=== PATIENT | male | born 1965 | race African-American/Black ===

== ENCOUNTER 2023-08-19 08:32 | Emergency (ER) | payer OTHER ==
[~2023-08-19] VITALS: Ht 175.3 cm; Wt 80.0 kg
[2023-08-19 08:37] VITALS: O2SAT 98
[2023-08-19] MEDS ORDERED: LACTATED RINGERS 1,000 ML IV SCH (09:15)
[2023-08-19] MEDS ORDERED: LEVETIRACETAM 500MG PREMIX 100 ML IV ONE ×2 (09:15)
[2023-08-19 09:57] LABS: BASOPHILS % 0.3 % (0.0-2.0); EOSINOPHILS % 0.8 % (0.0-5.0); HEMATOCRIT. 28.3 % (42.0-52.0); HEMOGLOBIN. 9.7 g/dL (14.0-18.0); LYMPHOCYTES % 14.6 % (20.0-50.0); MEAN CORPUSCULAR HEMOGLOBIN 31.2 pg (28.0-32.0); MEAN CORPUSCULAR HGB CONC 34.3 g/dL (31.0-37.0); MEAN PLATELET VOLUME 6.8 fl (7.4-10.4); MONOCYTES % 7.8 % (2.0-8.0); NEUTROPHILS % 76.5 % (40.0-76.0); PLATELET 351 x1000/uL (130-400); RED BLOOD CELL COUNT 3.11 mill/uL (4.7-6.1); RED CELL DISTRIBUTION WIDTH 13.5 % (11.6-14.6)
[2023-08-19 10:01] LABS: ALANINE AMINOTRANSFERASE 13 IU/L (10-49); ALBUMIN 3.7 g/dL (3.2-4.8); ASPARTATE AMINOTRANSFERASE 15 IU/L (<34); BILIRUBIN TOTAL 0.4 mg/dL (0.1-1.0); CALCIUM 8.3 mg/dL (8.7-10.4); CARBON DIOXIDE 26 mEq/L (21-32); CHLORIDE 104 mEq/L (98-107); CREATINE KINASE 93 IU/L (46-171); CREATININE 1.1 mg/dL (0.6-1.3); GLUCOSE 288 mg/dL (70-105); PROTEIN TOTAL 6.5 g/dL (6.0-8.3); SODIUM 139 mEq/L (136-145); UREA NITROGEN BLOOD 19 mg/dL (9-23)
[2023-08-19 11:49] VITALS: BP 195/127; RESP 13; TEMP 98.3
[2023-08-19 12:58] VITALS: PULSE 98
== END 2023-08-19 13:50 | disposition home or self-care (01) ==
LOC: ER 08:32
DX: R56.9 Unspecified convulsions (principal); E11.9 Type 2 diabetes mellitus without complications; I10 Essential (primary) hypertension
CPT/HCPCS: 80053; 82550; 85025; 36415; 70450; 93005; 96365; 99285; J1953; Z7610 ×3

== ENCOUNTER 2024-04-04 15:47 | Emergency (ER) | payer OTHER ==
[~2024-04-04] VITALS: Ht 175.3 cm; Wt 70.0 kg
[2024-04-04 15:51] VITALS: O2SAT 97
[2024-04-04 16:48] LABS: BASOPHILS % 0.6 % (0.0-2.0); EOSINOPHILS % 0.6 % (0.0-5.0); HEMATOCRIT. 28.3 % (42.0-52.0); HEMOGLOBIN. 9.7 g/dL (14.0-18.0); LYMPHOCYTES % 18.1 % (20.0-50.0); MEAN CORPUSCULAR HEMOGLOBIN 30.9 pg (28.0-32.0); MEAN CORPUSCULAR HGB CONC 34.3 g/dL (31.0-37.0); MEAN CORPUSCULAR VOLUME 90.1 fL (80.0-94.0); MEAN PLATELET VOLUME 6.7 fl (7.4-10.4); MONOCYTES % 6.4 % (2.0-8.0); NEUTROPHILS % 74.3 % (40.0-76.0); PLATELET 301 x1000/uL (130-400); RED BLOOD CELL COUNT 3.14 mill/uL (4.7-6.1); RED CELL DISTRIBUTION WIDTH 13.5 % (11.6-14.6); WHITE BLOOD COUNT 6.1 x1000/uL (4.5-11.0)
[2024-04-04 16:52] LABS: CHLORIDE 107 mEq/L (98-107); POTASSIUM 3.8 mEq/L (3.5-5.1); SODIUM 138 mEq/L (136-145)
[2024-04-04 16:53] LABS: CARBON DIOXIDE 24 mEq/L (21-32)
[2024-04-04 16:58] LABS: CREATININE 1.2 mg/dL (0.6-1.3); GLUCOSE 162 mg/dL (70-105); UREA NITROGEN BLOOD 21 mg/dL (9-23)
[2024-04-04] MEDS: LEVETIRACETAM 1000MG PREMIX 100 ML IV ONE (17:04)
[2024-04-04 17:10] LABS: ETHANOL BLOOD < 10 mg/dL (<10)
[2024-04-04] MEDS ORDERED: HYDRALAZINE HCL 50MG TABLET PO ONE (18:30)
[2024-04-04] MEDS: HYDRALAZINE HCL 25MG TABLET PO NR (18:32)
[2024-04-04] MEDS: LISINOPRIL 10MG TABLET PO ONE (18:32)
[2024-04-04] MEDS: HYDRALAZINE 20MG/ML VIAL IV ONE (20:14)
[2024-04-04 21:30] VITALS: BP 150/93; PULSE 115; RESP 20; TEMP 98.3
== END 2024-04-04 21:20 | disposition home or self-care (01) ==
LOC: ER 15:47
DX: R56.9 Unspecified convulsions (principal); E11.9 Type 2 diabetes mellitus without complications; I10 Essential (primary) hypertension
CPT/HCPCS: 80048; 80320; 85025; 36415; 96365; 96366; 96375; 99285; J1953; J0360; Z7610 ×4; G0480

== ENCOUNTER 2024-04-12 12:48 | Emergency (ER) | payer OTHER ==
[~2024-04-12] VITALS: Ht 177.8 cm; Wt 66.0 kg
[2024-04-12 12:56] VITALS: O2SAT 99
[2024-04-12] MEDS: SODIUM CHLORIDE 0.9% 1,000 ML IV ONE (13:27)
[2024-04-12] MEDS: LEVETIRACETAM 500MG PREMIX 100 ML IV ONE (13:27)
[2024-04-12 13:41] LABS: BASOPHILS % 0.6 % (0.0-2.0); EOSINOPHILS % 1.1 % (0.0-5.0); HEMATOCRIT. 29.7 % (42.0-52.0); LYMPHOCYTES % 23.3 % (20.0-50.0); MEAN CORPUSCULAR HEMOGLOBIN 30.6 pg (28.0-32.0); MEAN CORPUSCULAR HGB CONC 33.7 g/dL (31.0-37.0); MEAN CORPUSCULAR VOLUME 90.8 fL (80.0-94.0); MEAN PLATELET VOLUME 6.6 fl (7.4-10.4); MONOCYTES % 7.3 % (2.0-8.0); NEUTROPHILS % 67.7 % (40.0-76.0); PLATELET 355 x1000/uL (130-400); RED BLOOD CELL COUNT 3.27 mill/uL (4.7-6.1); RED CELL DISTRIBUTION WIDTH 13.6 % (11.6-14.6); WHITE BLOOD COUNT 7.1 x1000/uL (4.5-11.0)
[2024-04-12 13:46] LABS: CHLORIDE 105 mEq/L (98-107); POTASSIUM 4.3 mEq/L (3.5-5.1); SODIUM 139 mEq/L (136-145)
[2024-04-12 13:47] LABS: CALCIUM 9.6 mg/dL (8.7-10.4); CARBON DIOXIDE 25 mEq/L (21-32)
[2024-04-12 13:52] LABS: CREATININE 1.3 mg/dL (0.6-1.3); GLUCOSE 130 mg/dL (70-105); UREA NITROGEN BLOOD 17 mg/dL (9-23)
[2024-04-12 16:46] VITALS: BP 148/78; PULSE 98; RESP 15; TEMP 98.4
== END 2024-04-12 16:47 | disposition home or self-care (01) ==
LOC: ER 12:48
DX: R56.9 Unspecified convulsions (principal); N28.9 Disorder of kidney and ureter, unspecified; E11.9 Type 2 diabetes mellitus without complications; I10 Essential (primary) hypertension; Z86.59 Personal history of other mental and behavioral disorders; W07.XXXA Fall from chair, initial encounter; Y93.89 Activity, other specified; Y92.89 Other specified places as the place of occurrence of the external cause; Y99.8 Other external cause status
CPT/HCPCS: 99285; 96365; 70450; 80048; 85025; 36415; 93005; J1953; J7030

== ENCOUNTER 2024-06-11 17:53 | Inpatient (IN) | payer OTHER ==
[~2024-06-11] VITALS: Ht 172.7 cm; Wt 77.1 kg
[2024-06-11] MEDS: SODIUM CHLORIDE 0.9% 1,000 ML IV ONE (18:41)
[2024-06-11] MEDS: LEVETIRACETAM 1000MG PREMIX 100 ML IV ONE (18:41)
[2024-06-11 18:59] LABS: BASOPHILS % 0.3 % (0.0-2.0); EOSINOPHILS % 0.3 % (0.0-5.0); HEMATOCRIT. 31.2 % (42.0-52.0); HEMOGLOBIN. 10.7 g/dL (14.0-18.0); LYMPHOCYTES % 17.1 % (20.0-50.0); MEAN CORPUSCULAR HEMOGLOBIN 31.1 pg (28.0-32.0); MEAN CORPUSCULAR HGB CONC 34.4 g/dL (31.0-37.0); MEAN CORPUSCULAR VOLUME 90.5 fL (80.0-94.0); MEAN PLATELET VOLUME 7.3 fl (7.4-10.4); MONOCYTES % 7.7 % (2.0-8.0); NEUTROPHILS % 74.6 % (40.0-76.0); PLATELET 295 x1000/uL (130-400); RED BLOOD CELL COUNT 3.45 mill/uL (4.7-6.1); RED CELL DISTRIBUTION WIDTH 13.4 % (11.6-14.6); WHITE BLOOD COUNT 7.2 x1000/uL (4.5-11.0)
[2024-06-11 19:04] LABS: CHLORIDE 106 mEq/L (98-107); POTASSIUM 4.6 mEq/L (3.5-5.1); SODIUM 137 mEq/L (136-145)
[2024-06-11 19:05] LABS: CALCIUM 9.7 mg/dL (8.7-10.4); CARBON DIOXIDE 21 mEq/L (21-32)
[2024-06-11 19:10] LABS: CREATININE 1.6 mg/dL (0.6-1.3); GLUCOSE 184 mg/dL (70-105); UREA NITROGEN BLOOD 23 mg/dL (9-23)
[2024-06-11 19:11] LABS: TROPONIN I HIGH SENSITIVITY 5 ng/L (3.0-53)
[2024-06-11 19:12] LABS: CREATINE KINASE 56 IU/L (46-171)
[2024-06-11 19:15] LABS: ETHANOL BLOOD < 10 mg/dL (<10)
[2024-06-11 19:16] LABS: CARBAMAZEPINE < 0.4 ug/mL (4-12); PHENOBARBITAL < 3.0 ug/mL (15.0-40.0); PHENYTOIN < 2.0 ug/mL (10-20); VALPROIC ACID < 3.0 ug/mL (50-100)
[2024-06-11] MEDS ORDERED: ONDANSETRON HCL 4MG/2ML INJ IV PRN (21:00)
[2024-06-11] MEDS ORDERED: LORAZEPAM 2MG/ML INJ IV PRN (21:00)
[2024-06-11] MEDS ORDERED: GUAIFENESIN 200MG/10ML SUGAR FREE UDC PO PRN (21:00)
[2024-06-11] MEDS ORDERED: DOCUSATE SODIUM 100MG CAPSULE PO PRN (21:00)
[2024-06-11] MEDS ORDERED: ACETAMINOPHEN 325MG TABLET PO PRN (21:00)
[2024-06-11] MEDS ORDERED: IPRATROPIUM/ALBUTEROL 0.5-3(2.5)MG/3ML NEB HHN PRN (21:00)
[2024-06-11] MEDS ORDERED: MAGNESIUM/ALUMINUM HYDROXIDE/SIMETHICONE 30ML UDC PO PRN (21:00)
[2024-06-11] MEDS: HYDRALAZINE 20MG/ML VIAL IV PRN (21:29)
[2024-06-11] MEDS ORDERED: DEXTROSE 50% WATER 50ML SYRINGE IV PRN (22:15)
[2024-06-11] MEDS: FAMOTIDINE 20MG TABLET PO SCH (22:22)
[2024-06-11] MEDS: SODIUM CHLORIDE 0.9% 1,000 ML IV SCH (22:28)
[2024-06-11 22:48] LABS: CLARITY URINE CLEAR (CLEAR); COLOR URINE YELLOW (YELLOW); GLUCOSE URINE NEGATIVE (NEGATIVE); KETONES URINE 1+ (NEGATIVE); LEUKOCYTE ESTERASE URINE NEGATIVE (NEGATIVE); NITRITE URINE NEGATIVE (NEGATIVE); OCCULT BLOOD URINE 1+ (NEGATIVE); PH URINE 6.5 (4.5-8.0); PROTEIN URINE 3+ (NEGATIVE); SPECIFIC GRAVITY URINE 1.012 (1.005-1.030); UROBILINOGEN URINE 0.2 E.U./dL (0.2-1.0)
[2024-06-11 23:06] LABS: *AMPHETAMINES SCREEN URINE NEGATIVE (NEGATIVE); *BARBITURATES SCREEN URINE NEGATIVE (NEGATIVE); *BENZODIAZEPINES SCREEN URINE NEGATIVE (NEGATIVE); *COCAINE SCREEN URINE NEGATIVE (NEGATIVE); CANNABINOID URINE SCREEN NEGATIVE (NEGATIVE); ECSTASY MDMA SCREEN URINE NEGATIVE (NEGATIVE); METHADONE URINE SCREEN NEGATIVE (NEGATIVE); OPIATES URINE SCREEN NEGATIVE (NEGATIVE); PHENCYCLIDINE URINE SCREEN NEGATIVE (NEGATIVE)
[2024-06-11 23:13] LABS: RBC URINE 0-2 /hpf (0-2); SQUAMOUS EPITHELIAL CELL URINE FEW /lpf (RARE/1+); WBC URINE NONE SEEN /hpf (0-2)
[2024-06-11 23:13] LABS: CREATINE KINASE 79 IU/L (46-171)
[2024-06-11 23:14] LABS: BACTERIA URINE TRACE
[2024-06-12] MEDS: BLOOD SUGAR DIAGNOSTIC STRIP TEST SCH (06:45)
[2024-06-12 07:23] LABS: CHLORIDE 102 mEq/L (98-107); POTASSIUM 3.6 mEq/L (3.5-5.1); SODIUM 137 mEq/L (136-145)
[2024-06-12 07:24] LABS: CARBON DIOXIDE 22 mEq/L (21-32)
[2024-06-12 07:25] LABS: CALCIUM 9.9 mg/dL (8.7-10.4)
[2024-06-12 07:29] LABS: CREATININE 1.5 mg/dL (0.6-1.3); GLUCOSE 191 mg/dL (70-105)
[2024-06-12 07:30] LABS: UREA NITROGEN BLOOD 18 mg/dL (9-23)
[2024-06-12] MEDS ORDERED: LISI30TA36 PO (07:30)
[2024-06-12] MEDS ORDERED: METO-396 PO (07:30)
[2024-06-12 07:32] LABS: CREATINE KINASE 124 IU/L (46-171); PHOSPHORUS 3.9 mg/dL (2.5-4.9)
[2024-06-12 07:34] LABS: T4 FREE 1.71 ng/dL (0.89-1.76); THYROID STIMULATING HORMONE 1.22 uIU/mL (0.55-4.78)
[2024-06-12 07:57] LABS: BASOPHILS % 0.2 % (0.0-2.0); HEMATOCRIT. 35.2 % (42.0-52.0); MEAN CORPUSCULAR HEMOGLOBIN 31.1 pg (28.0-32.0); MEAN CORPUSCULAR HGB CONC 34.1 g/dL (31.0-37.0); MEAN CORPUSCULAR VOLUME 91.1 fL (80.0-94.0); MEAN PLATELET VOLUME 7.5 fl (7.4-10.4); MONOCYTES % 5.9 % (2.0-8.0); NEUTROPHILS % 80.9 % (40.0-76.0); PLATELET 364 x1000/uL (130-400); RED BLOOD CELL COUNT 3.87 mill/uL (4.7-6.1); RED CELL DISTRIBUTION WIDTH 13.2 % (11.6-14.6); WHITE BLOOD COUNT 9.6 x1000/uL (4.5-11.0)
[2024-06-12 08:00] VITALS: BP 119/83; PULSE 88; RESP 18; TEMP 37.16964; O2SAT 99
[2024-06-12] MEDS: INSULIN LISPRO 100 UNITS/ML SUBCUT SCH (08:36)
[2024-06-12] MEDS: AMLODIPINE 5MG TABLET PO SCH (08:37)
[2024-06-12] MEDS: LEVETIRACETAM 500MG TABLET PO SCH (08:37)
[2024-06-12] MEDS: ENOXAPARIN 40MG/0.4ML SYR SUBCUT SCH (08:38)
[2024-06-12] MEDS: METOPROLOL SUCCINATE 25MG ER TABLET PO SCH (08:43)
[2024-06-12 11:20] VITALS: BP 119/83; PULSE 88; RESP 18; TEMP 37.1408
[2024-06-12] MEDS ORDERED: LEVE1000 PO (11:37)
[2024-06-12 12:00] VITALS: BP 141/90; PULSE 96; RESP 20; TEMP 36.55848; O2SAT 100
[2024-06-12 16:00] VITALS: BP 138/88; PULSE 88; RESP 20; TEMP 36.61404; O2SAT 98
[2024-06-12 16:12] LABS: HEPATITIS B SURFACE ANTIGEN NEGATIVE (Negative)
[2024-06-12 16:33] LABS: HEPATITIS C AB NON REACTIVE (Neg) (Negative)
[2024-06-12 20:00] VITALS: BP 158/99; PULSE 81; RESP 20; TEMP 36.3918; O2SAT 98
[2024-06-12] MEDS: MAGNESIUM 2 G PREMIX 50 ML IV NR (20:17)
[2024-06-12 22:09] LABS: ALANINE AMINOTRANSFERASE < 7 IU/L (10-49); ALBUMIN 3.6 g/dL (3.2-4.8); ASPARTATE AMINOTRANSFERASE 10 IU/L (<34); BILIRUBIN DIRECT 0.2 mg/dL (<=3.0); BILIRUBIN TOTAL 0.5 mg/dL (0.1-1.0); PROTEIN TOTAL 6.7 g/dL (6.0-8.3)
[2024-06-13] VITALS: BP 168/106; PULSE 84; RESP 18; TEMP 36.28068; O2SAT 97
[2024-06-13 04:00] VITALS: BP 154/101; PULSE 95; RESP 18; TEMP 36.55848; O2SAT 98
[2024-06-13 06:50] LABS: POTASSIUM 3.8 mEq/L (3.5-5.1)
[2024-06-13 06:51] LABS: CALCIUM 9.4 mg/dL (8.7-10.4)
[2024-06-13 06:56] LABS: CREATININE 1.6 mg/dL (0.6-1.3)
[2024-06-13 07:19] LABS: BASOPHILS % 0.2 % (0.0-2.0); EOSINOPHILS % 0.3 % (0.0-5.0); HEMATOCRIT. 30.2 % (42.0-52.0); HEMOGLOBIN. 10.4 g/dL (14.0-18.0); LYMPHOCYTES % 18.6 % (20.0-50.0); MEAN CORPUSCULAR HEMOGLOBIN 30.8 pg (28.0-32.0); MEAN CORPUSCULAR HGB CONC 34.6 g/dL (31.0-37.0); MEAN CORPUSCULAR VOLUME 89.1 fL (80.0-94.0); MEAN PLATELET VOLUME 7.6 fl (7.4-10.4); MONOCYTES % 10.5 % (2.0-8.0); NEUTROPHILS % 70.4 % (40.0-76.0); PLATELET 297 x1000/uL (130-400); RED BLOOD CELL COUNT 3.39 mill/uL (4.7-6.1); RED CELL DISTRIBUTION WIDTH 13.1 % (11.6-14.6); WHITE BLOOD COUNT 7.3 x1000/uL (4.5-11.0)
[2024-06-13 08:00] VITALS: BP 147/100; PULSE 97; RESP 20; TEMP 37.00296; O2SAT 99
[2024-06-13] MEDS ORDERED: METF-416 PO (09:10)
[2024-06-13] MEDS ORDERED: ROSU5CAP (09:11)
[2024-06-13] MEDS ORDERED: AMLO5TAB88 PO (09:42)
[2024-06-13] MEDS ORDERED: METO-385 PO (09:42)
[2024-06-13] MEDS ORDERED: LISI20TA31 PO (10:03)
[2024-06-13] MEDS ORDERED: AMLO10TA80 PO (10:07)
[2024-06-13 12:00] VITALS: BP 137/100; PULSE 86; RESP 18; TEMP 36.114; TEMP 36.11400; O2SAT 95
[2024-06-13 14:39] VITALS: BP 137/100; PULSE 86; TEMP 97; O2SAT 95
[2024-06-13] MEDS ORDERED: HYDRALAZINE HCL 25MG TABLET PO SCH (21:00)
[2024-06-14] MEDS ORDERED: AMLODIPINE 5MG TABLET PO SCH (09:00)
== END 2024-06-13 15:45 | disposition home or self-care (01) | DRG 101 ==
LOC: ER 17:53 → EDBEDREQ 18:12 → 5WST 19:24 → EDBEDREQTM 19:44 → EDBEDREQ 19:44 → 8WST 06-12 09:19
PROVIDERS: ADMIT Internal Medicine; ATTEND Internal Medicine
DX: G40.909 Epilepsy, unspecified, not intractable, without status epilepticus (principal); N17.9 Acute kidney failure, unspecified; E11.22 Type 2 diabetes mellitus with diabetic chronic kidney disease; N18.9 Chronic kidney disease, unspecified; I12.9 Hypertensive chronic kidney disease with stage 1 through stage 4 chronic kidney disease, or unspecified chronic kidney disease; E83.42 Hypomagnesemia
CPT/HCPCS: 36415; 80048; 80156; 80165; 80184; 80185; 80305; 80320; 81003; 82040; 82247; 82248; 82550; 82962; 83036; 83735; 84075; 84100; 84145; 84155; 84439; 84443; 84450; 84460; 84484; 85025; 86705; 87340; 99285; J0360; J1650; J1815; J1953; J3475; J7030; G0480

== ENCOUNTER 2024-06-17 13:44 | Emergency (ER) | payer OTHER ==
[~2024-06-17] VITALS: Ht 182.9 cm; Wt 73.0 kg
[~2024-06-17 13:44] MED LIST: AMLO10TA80 PO; LEVE1000 PO; LISI20TA31 PO; METF-416 PO; METO-396 PO; ROSU5CAP
[2024-06-17 13:49] VITALS: O2SAT 98
[2024-06-17 14:28] LABS: BASOPHILS % 0.3 % (0.0-2.0); EOSINOPHILS % 1.3 % (0.0-5.0); HEMATOCRIT. 29.9 % (42.0-52.0); LYMPHOCYTES % 29.4 % (20.0-50.0); MEAN CORPUSCULAR HEMOGLOBIN 30.5 pg (28.0-32.0); MEAN CORPUSCULAR HGB CONC 33.4 g/dL (31.0-37.0); MEAN CORPUSCULAR VOLUME 91.3 fL (80.0-94.0); MEAN PLATELET VOLUME 6.7 fl (7.4-10.4); PLATELET 306 x1000/uL (130-400); RED BLOOD CELL COUNT 3.28 mill/uL (4.7-6.1); RED CELL DISTRIBUTION WIDTH 13.3 % (11.6-14.6); WHITE BLOOD COUNT 6.4 x1000/uL (4.5-11.0)
[2024-06-17 14:31] LABS: CHLORIDE 106 mEq/L (98-107); POTASSIUM 3.9 mEq/L (3.5-5.1); SODIUM 138 mEq/L (136-145)
[2024-06-17 14:32] LABS: CALCIUM 9.4 mg/dL (8.7-10.4); CARBON DIOXIDE 27 mEq/L (21-32)
[2024-06-17 14:37] LABS: CREATININE 1.3 mg/dL (0.6-1.3); GLUCOSE 124 mg/dL (70-105); UREA NITROGEN BLOOD 18 mg/dL (9-23)
[2024-06-17 14:39] LABS: ALANINE AMINOTRANSFERASE < 7 IU/L (10-49); ALBUMIN 4.2 g/dL (3.2-4.8); ASPARTATE AMINOTRANSFERASE 10 IU/L (<34); BILIRUBIN TOTAL 0.7 mg/dL (0.1-1.0); PROTEIN TOTAL 7.2 g/dL (6.0-8.3)
[2024-06-17] MEDS: LEVETIRACETAM 500MG PREMIX 100 ML IV ONE ×2 (14:48)
[2024-06-17] MEDS: LACTATED RINGERS 1,000 ML IV SCH (15:23)
[2024-06-17 15:42] VITALS: BP 210/120; PULSE 106; RESP 18; TEMP 36.66960
== END 2024-06-17 15:56 | disposition home or self-care (01) ==
LOC: ER 15:35
DX: G40.909 Epilepsy, unspecified, not intractable, without status epilepticus (principal); E11.22 Type 2 diabetes mellitus with diabetic chronic kidney disease; N18.9 Chronic kidney disease, unspecified; I12.9 Hypertensive chronic kidney disease with stage 1 through stage 4 chronic kidney disease, or unspecified chronic kidney disease; Z79.899 Other long term (current) drug therapy
CPT/HCPCS: 99285; 96365; 96361; 80053; 85025; 36415; 93005; J1953

== ENCOUNTER 2024-08-08 05:51 | Inpatient (IN) | payer OTHER ==
[~2024-08-08] VITALS: Ht 177.8 cm; Wt 68.6 kg
[2024-08-08 06:22] LABS: BASOPHILS % 0.5 % (0.0-2.0); EOSINOPHILS % 1.2 % (0.0-5.0); HEMATOCRIT. 32.7 % (42.0-52.0); HEMOGLOBIN. 10.9 g/dL (14.0-18.0); MEAN CORPUSCULAR HEMOGLOBIN 30.6 pg (28.0-32.0); MEAN CORPUSCULAR HGB CONC 33.2 g/dL (31.0-37.0); MEAN CORPUSCULAR VOLUME 92.2 fL (80.0-94.0); MEAN PLATELET VOLUME 7.5 fl (7.4-10.4); MONOCYTES % 9.4 % (2.0-8.0); NEUTROPHILS % 55.9 % (40.0-76.0); PLATELET 301 x1000/uL (130-400); RED BLOOD CELL COUNT 3.55 mill/uL (4.7-6.1); WHITE BLOOD COUNT 7.7 x1000/uL (4.5-11.0)
[2024-08-08] MEDS: LEVETIRACETAM 1000MG PREMIX 100 ML IV ONE (06:25)
[2024-08-08 06:29] LABS: CHLORIDE 105 mEq/L (98-107); POTASSIUM 4.7 mEq/L (3.5-5.1); SODIUM 137 mEq/L (136-145)
[2024-08-08] MEDS: LABETALOL 5MG/ML 4ML INJ IV ONE (06:29)
[2024-08-08 06:30] LABS: CARBON DIOXIDE 18 mEq/L (21-32)
[2024-08-08 06:31] LABS: CALCIUM 9.4 mg/dL (8.7-10.4)
[2024-08-08 06:35] LABS: GLUCOSE 191 mg/dL (70-105)
[2024-08-08 06:36] LABS: UREA NITROGEN BLOOD 29 mg/dL (9-23)
[2024-08-08 06:42] LABS: CREATININE 1.7 mg/dL (0.6-1.3)
[2024-08-08 06:43] LABS: ETHANOL BLOOD < 10 mg/dL (<10)
[2024-08-08] MEDS: LORAZEPAM 2MG/ML INJ IV ONE ×2 (06:49→07:38)
[2024-08-08] MEDS: NICARDIPINE 40MG/200ML PREMIX 200 ML IV PRN (07:50)
[2024-08-08] MEDS ORDERED: ACETAMINOPHEN 325MG TABLET PO PRN ×2 (09:15)
[2024-08-08] MEDS ORDERED: IPRATROPIUM/ALBUTEROL 0.5-3(2.5)MG/3ML NEB HHN PRN (09:15)
[2024-08-08] MEDS ORDERED: GUAIFENESIN 200MG/10ML SUGAR FREE UDC PO PRN (09:15)
[2024-08-08] MEDS ORDERED: LORAZEPAM 2MG/ML INJ IV PRN (09:15)
[2024-08-08] MEDS ORDERED: DOCUSATE SODIUM 100MG CAPSULE PO PRN (09:15)
[2024-08-08] MEDS ORDERED: DEXTROSE 50% WATER 50ML SYRINGE IV PRN (09:15)
[2024-08-08] MEDS ORDERED: MAGNESIUM 2 G PREMIX 50 ML IV ONE (09:45)
[2024-08-08] MEDS ORDERED: PANTOPRAZOLE SODIUM 40 MG/VIAL IV SCH (10:15)
[2024-08-08 10:48] LABS: AMMONIA 18 uMol/L (<32)
[2024-08-08 10:49] LABS: ALBUMIN 3.6 g/dL (3.2-4.8); BETA HYDROXYBUTYRATE 0.2 mMol/L (0.0-0.3); CREATINE KINASE 61 IU/L (46-171); PHOSPHORUS 2.7 mg/dL (2.5-4.9)
[2024-08-08] MEDS: FAMOTIDINE 20MG/2ML VIAL IV SCH (10:51)
[2024-08-08] MEDS: SODIUM BICARBONATE 8.4% 50MEQ/50ML SYR IV NR (10:51)
[2024-08-08] MEDS: MAGNESIUM 2 G PREMIX 50 ML IV NR (10:51)
[2024-08-08] MEDS: BLOOD SUGAR DIAGNOSTIC STRIP TEST SCH (13:00)
[2024-08-08] MEDS: LACTATED RINGERS 1,000 ML IV SCH (13:15)
[2024-08-08 13:49] LABS: POTASSIUM 4.5 mEq/L (3.5-5.1)
[2024-08-08 13:50] LABS: CALCIUM 8.9 mg/dL (8.7-10.4)
[2024-08-08 13:55] LABS: CREATININE 1.5 mg/dL (0.6-1.3)
[2024-08-08] MEDS: INSULIN LISPRO 100 UNITS/ML SUBCUT SCH (14:37)
[2024-08-08] MEDS ORDERED: HYDRALAZINE 20MG/ML VIAL IV PRN (17:15)
[2024-08-08 20:00] VITALS: PULSE 97; RESP 18; O2SAT 97
[2024-08-08] MEDS ORDERED: LEVETIRACETAM 1,000MG in NACL 100ML PREMIX IV SCH (21:00)
[2024-08-08] MEDS ORDERED: LEVETIRACETAM 500MG PREMIX 100 ML IV SCH (21:00)
[2024-08-08] MEDS: LISINOPRIL 20MG TABLET PO SCH (21:19)
[2024-08-08] MEDS: LEVETIRACETAM 1000MG PREMIX 100 ML IV SCH (21:19)
[2024-08-08 21:51] VITALS: BP 172/94; PULSE 102; RESP 12; TEMP 36.9184
[2024-08-08 22:31] VITALS: BP 149/85; PULSE 93; RESP 20; TEMP 36.89184; O2SAT 96
[2024-08-08 22:44] LABS: CLARITY URINE CLEAR (CLEAR); COLOR URINE YELLOW (YELLOW); GLUCOSE URINE TRACE (NEGATIVE); KETONES URINE 2+ (NEGATIVE); LEUKOCYTE ESTERASE URINE NEGATIVE (NEGATIVE); NITRITE URINE NEGATIVE (NEGATIVE); OCCULT BLOOD URINE 1+ (NEGATIVE); PH URINE 6.5 (4.5-8.0); PROTEIN URINE 3+ (NEGATIVE); SPECIFIC GRAVITY URINE 1.015 (1.005-1.030)
[2024-08-08 23:01] LABS: *AMPHETAMINES SCREEN URINE NEGATIVE (NEGATIVE); *BARBITURATES SCREEN URINE NEGATIVE (NEGATIVE); *BENZODIAZEPINES SCREEN URINE NEGATIVE (NEGATIVE); *COCAINE SCREEN URINE NEGATIVE (NEGATIVE); CANNABINOID URINE SCREEN NEGATIVE (NEGATIVE); ECSTASY MDMA SCREEN URINE NEGATIVE (NEGATIVE); METHADONE URINE SCREEN NEGATIVE (NEGATIVE); OPIATES URINE SCREEN NEGATIVE (NEGATIVE); PHENCYCLIDINE URINE SCREEN NEGATIVE (NEGATIVE)
[2024-08-08 23:12] LABS: BACTERIA URINE TRACE
[2024-08-08 23:13] LABS: SQUAMOUS EPITHELIAL CELL URINE FEW /lpf (RARE/1+); WBC URINE 0-2 /hpf (0-2)
[2024-08-09] VITALS: BP 149/91; PULSE 98; RESP 16; TEMP 36.78072; O2SAT 97
[2024-08-09 04:00] VITALS: BP 157/93; PULSE 99; RESP 16; O2SAT 97
[2024-08-09 06:52] LABS: BASOPHILS % 0.1 % (0.0-2.0); HEMATOCRIT. 30.7 % (42.0-52.0); HEMOGLOBIN. 10.6 g/dL (14.0-18.0); LYMPHOCYTES % 13.8 % (20.0-50.0); MEAN CORPUSCULAR HEMOGLOBIN 31.2 pg (28.0-32.0); MEAN CORPUSCULAR HGB CONC 34.5 g/dL (31.0-37.0); MEAN CORPUSCULAR VOLUME 90.6 fL (80.0-94.0); MEAN PLATELET VOLUME 7.6 fl (7.4-10.4); MONOCYTES % 9.4 % (2.0-8.0); NEUTROPHILS % 76.7 % (40.0-76.0); PLATELET 266 x1000/uL (130-400); RED BLOOD CELL COUNT 3.39 mill/uL (4.7-6.1); RED CELL DISTRIBUTION WIDTH 13.3 % (11.6-14.6); WHITE BLOOD COUNT 6.3 x1000/uL (4.5-11.0)
[2024-08-09 06:53] LABS: CHLORIDE 106 mEq/L (98-107); POTASSIUM 4.5 mEq/L (3.5-5.1); SODIUM 137 mEq/L (136-145)
[2024-08-09 06:54] LABS: CALCIUM 9.2 mg/dL (8.7-10.4); CARBON DIOXIDE 24 mEq/L (21-32)
[2024-08-09 06:59] LABS: CREATININE 1.4 mg/dL (0.6-1.3); GLUCOSE 155 mg/dL (70-105); TRIGLYCERIDE 53 mg/dL (0-150); UREA NITROGEN BLOOD 15 mg/dL (9-23)
[2024-08-09 07:00] LABS: LDL CHOLESTEROL 62 mg/dL (5-100)
[2024-08-09 07:01] LABS: ALANINE AMINOTRANSFERASE < 7 IU/L (10-49); ALBUMIN 3.7 g/dL (3.2-4.8); ASPARTATE AMINOTRANSFERASE 10 IU/L (<34); BILIRUBIN TOTAL 0.6 mg/dL (0.1-1.0); CHOLESTEROL 119 mg/dL (<200); HDL CHOLESTEROL 40 mg/dL (>55); PHOSPHORUS 3.6 mg/dL (2.5-4.9)
[2024-08-09 08:00] VITALS: BP 148/89; PULSE 96; RESP 18; TEMP 37.28076; O2SAT 98
[2024-08-09] MEDS ORDERED: ONDANSETRON HCL 4MG/2ML INJ IV PRN (08:45)
[2024-08-09] MEDS ORDERED: METOPROLOL SUCCINATE 25MG ER TABLET PO SCH (09:00)
[2024-08-09] MEDS: LOSARTAN 50 MG TABLET PO SCH (09:42)
[2024-08-09] MEDS: AMLODIPINE 10MG TABLET PO SCH (09:42)
[2024-08-09] MEDS: MAGNESIUM 2 G PREMIX 50 ML IV SCH (12:03)
[2024-08-09] MEDS: METOPROLOL TARTRATE 25MG TABLET PO SCH (12:19)
[2024-08-09 16:00] VITALS: BP 139/79; PULSE 69; RESP 12; TEMP 36.78072; O2SAT 99
[2024-08-09 19:15] VITALS: BP 137/88; PULSE 78; TEMP 98; O2SAT 99
[2024-08-09 20:00] VITALS: BP 139/79; PULSE 72; RESP 17; TEMP 36.9474; TEMP 36.94740; O2SAT 99
== END 2024-08-09 21:35 | disposition home or self-care (01) | DRG 101 ==
LOC: ER 05:51 → EDBEDREQSVC 07:37 → EDBEDREQTM 07:37 → EDBEDREQSVC 17:49 → 3WST 20:05
PROVIDERS: ADMIT Internal Medicine; ATTEND Internal Medicine
DX: G40.901 Epilepsy, unspecified, not intractable, with status epilepticus (principal); N17.9 Acute kidney failure, unspecified; E87.20 Acidosis, unspecified; I16.1 Hypertensive emergency; E11.22 Type 2 diabetes mellitus with diabetic chronic kidney disease; E83.42 Hypomagnesemia; I12.9 Hypertensive chronic kidney disease with stage 1 through stage 4 chronic kidney disease, or unspecified chronic kidney disease; N18.9 Chronic kidney disease, unspecified; Z79.84 Long term (current) use of oral hypoglycemic drugs; Z91.148 Patient's other noncompliance with medication regimen for other reason; Z79.899 Other long term (current) drug therapy
CPT/HCPCS: 36415; 80048; 80053; 80061; 80305; 80320; 81003; 82010; 82040; 82140; 82542; 82550; 82947; 82962; 83036; 83605; 83735; 83880; 84100; 84145; 84443; 85025; 93306; 93970; 99291; J1815; J1953; J2060; J3475; J3490; G0480

== ENCOUNTER 2024-09-13 04:14 | Emergency (ER) | payer MEDICAID, OTHER ==
[~2024-09-13] VITALS: Ht 175.3 cm; Wt 75.0 kg
[2024-09-13 04:20] VITALS: O2SAT 98
[2024-09-13] MEDS: LEVETIRACETAM 1000MG PREMIX 100 ML IV ONE (05:11)
[2024-09-13 06:43] VITALS: BP 190/99; PULSE 83; RESP 16; TEMP 37.05852; O2SAT 99
== END 2024-09-13 06:45 | disposition home or self-care (01) ==
LOC: ER 04:14
DX: R56.9 Unspecified convulsions (principal); E11.9 Type 2 diabetes mellitus without complications; I10 Essential (primary) hypertension; Z79.899 Other long term (current) drug therapy
CPT/HCPCS: 99284; 96365; J1953

== ENCOUNTER 2024-10-10 10:44 | Emergency (ER) | payer MEDICAID ==
[~2024-10-10] VITALS: Ht 175.3 cm; Wt 80.0 kg
[2024-10-10 10:49] VITALS: O2SAT 95
[2024-10-10] MEDS ORDERED: LEVETIRACETAM 1000MG PREMIX 100 ML IV ONE (11:15)
[2024-10-10 11:42] LABS: BASOPHILS % 0.6 % (0.0-2.0); EOSINOPHILS % 0.9 % (0.0-5.0); HEMATOCRIT. 33.7 % (42.0-52.0); HEMOGLOBIN. 11.5 g/dL (14.0-18.0); LYMPHOCYTES % 29.2 % (20.0-50.0); MEAN CORPUSCULAR HEMOGLOBIN 31.4 pg (28.0-32.0); MEAN CORPUSCULAR HGB CONC 34.1 g/dL (31.0-37.0); MEAN CORPUSCULAR VOLUME 92.3 fL (80.0-94.0); MEAN PLATELET VOLUME 7.7 fl (7.4-10.4); MONOCYTES % 9.4 % (2.0-8.0); NEUTROPHILS % 59.9 % (40.0-76.0); PLATELET 327 x1000/uL (130-400); RED BLOOD CELL COUNT 3.66 mill/uL (4.7-6.1); RED CELL DISTRIBUTION WIDTH 13.6 % (11.6-14.6); WHITE BLOOD COUNT 5.9 x1000/uL (4.5-11.0)
[2024-10-10] MEDS: LEVETIRACETAM 1000MG PREMIX 100 ML IV NR (11:54)
[2024-10-10 11:57] LABS: CHLORIDE 104 mEq/L (98-107); SODIUM 136 mEq/L (136-145)
[2024-10-10 11:58] LABS: CARBON DIOXIDE 17 mEq/L (21-32)
[2024-10-10 11:59] LABS: CALCIUM 9.5 mg/dL (8.7-10.4)
[2024-10-10 12:03] LABS: CREATININE 1.8 mg/dL (0.6-1.3); GLUCOSE 130 mg/dL (70-105)
[2024-10-10 12:04] LABS: UREA NITROGEN BLOOD 33 mg/dL (9-23)
[2024-10-10] MEDS: LABETALOL 5MG/ML 4ML INJ IV NR (12:06)
[2024-10-10] MEDS: LACTATED RINGERS 1,000 ML IV STA (12:09)
[2024-10-10 12:12] LABS: ETHANOL BLOOD < 10 mg/dL (<10)
[2024-10-10 13:59] LABS: *AMPHETAMINES SCREEN URINE NEGATIVE (NEGATIVE); *BARBITURATES SCREEN URINE NEGATIVE (NEGATIVE); *BENZODIAZEPINES SCREEN URINE PRESUMPTIVE POSITIVE (NEGATIVE); *COCAINE SCREEN URINE NEGATIVE (NEGATIVE); CANNABINOID URINE SCREEN NEGATIVE (NEGATIVE); ECSTASY MDMA SCREEN URINE NEGATIVE (NEGATIVE); METHADONE URINE SCREEN NEGATIVE (NEGATIVE); OPIATES URINE SCREEN NEGATIVE (NEGATIVE); PHENCYCLIDINE URINE SCREEN NEGATIVE (NEGATIVE)
[2024-10-10 14:10] VITALS: BP 139/112; PULSE 90; RESP 20; TEMP 36.7; O2SAT 99
== END 2024-10-10 14:12 | disposition home or self-care (01) ==
LOC: ER 10:44
DX: G40.409 Other generalized epilepsy and epileptic syndromes, not intractable, without status epilepticus (principal); E11.9 Type 2 diabetes mellitus without complications; I10 Essential (primary) hypertension; N28.9 Disorder of kidney and ureter, unspecified; Z79.899 Other long term (current) drug therapy
CPT/HCPCS: 99284; 96365; 96375; 80305; 80048; 82962; 85025; 36415; G0480; J1953; J3490; J7120; 80320

== ENCOUNTER 2025-01-25 09:28 | Emergency (ER) | payer MEDICAID ==
[~2025-01-25] VITALS: Ht 172.7 cm; Wt 82.0 kg
[~2025-01-25 09:28] MED LIST changes: +LISI20TA31 MT
[2025-01-25 09:31] VITALS: O2SAT 97
[2025-01-25] MEDS: LEVETIRACETAM 1000MG PREMIX 100 ML IV ONE (09:45)
[2025-01-25 10:01] LABS: BASOPHILS % 0.5 % (0.0-2.0); EOSINOPHILS % 0.8 % (0.0-5.0); HEMATOCRIT. 30.3 % (42.0-52.0); HEMOGLOBIN. 10.3 g/dL (14.0-18.0); LYMPHOCYTES % 28.5 % (20.0-50.0); MEAN PLATELET VOLUME 7.3 fl (7.4-10.4); MONOCYTES % 9.9 % (2.0-8.0); NEUTROPHILS % 60.3 % (40.0-76.0); PLATELET 285 x1000/uL (130-400); RED BLOOD CELL COUNT 3.33 mill/uL (4.7-6.1); RED CELL DISTRIBUTION WIDTH 13.3 % (11.6-14.6); WHITE BLOOD COUNT 6.4 x1000/uL (4.5-11.0)
[2025-01-25 10:08] LABS: CHLORIDE 106 mEq/L (98-107); POTASSIUM 4.3 mEq/L (3.5-5.1); SODIUM 139 mEq/L (136-145)
[2025-01-25 10:09] LABS: CARBON DIOXIDE 22 mEq/L (21-32)
[2025-01-25 10:10] LABS: CALCIUM 8.5 mg/dL (8.7-10.4)
[2025-01-25 10:14] LABS: CREATININE 1.3 mg/dL (0.6-1.3); GLUCOSE 126 mg/dL (70-105)
[2025-01-25 10:15] LABS: ETHANOL BLOOD < 10 mg/dL (<10); UREA NITROGEN BLOOD 22 mg/dL (9-23)
[2025-01-25 12:05] VITALS: BP 146/87; PULSE 74; RESP 16; TEMP 37.1; O2SAT 99
== END 2025-01-25 12:49 | disposition home or self-care (01) ==
LOC: ER 09:28
DX: R56.9 Unspecified convulsions (principal); N28.9 Disorder of kidney and ureter, unspecified; E11.9 Type 2 diabetes mellitus without complications; I10 Essential (primary) hypertension; Z79.899 Other long term (current) drug therapy
CPT/HCPCS: 80048; 80320; 82962; 85025; 36415; 71045; 96365; 99284; J1953; Z7610; G0480

== ENCOUNTER 2025-04-20 13:53 | Emergency (ER) | payer MEDICAID ==
[~2025-04-20] VITALS: Ht 177.8 cm; Wt 81.0 kg
[~2025-04-20 13:53] MED LIST changes: +LEVE1000 MT; -LEVE1000 PO
[2025-04-20 13:54] VITALS: O2SAT 98
[2025-04-20] MEDS: LEVETIRACETAM 1000MG PREMIX 100 ML IV ONE (14:09)
[2025-04-20 14:21] LABS: BASOPHILS % 0.3 % (0.0-2.0); EOSINOPHILS % 0.1 % (0.0-5.0); HEMATOCRIT. 28.0 % (42.0-52.0); HEMOGLOBIN. 9.5 g/dL (14.0-18.0); LYMPHOCYTES % 18.1 % (20.0-50.0); MEAN PLATELET VOLUME 6.4 fl (7.4-10.4); MONOCYTES % 6.1 % (2.0-8.0); NEUTROPHILS % 75.4 % (40.0-76.0); PLATELET 284 x1000/uL (130-400); RED BLOOD CELL COUNT 3.13 mill/uL (4.7-6.1); RED CELL DISTRIBUTION WIDTH 13.9 % (11.6-14.6)
[2025-04-20 14:47] LABS: CREATININE 1.2 mg/dL (0.6-1.3); UREA NITROGEN BLOOD 17 mg/dL (9-23)
[2025-04-20 14:48] LABS: ETHANOL BLOOD < 10 mg/dL (<10)
[2025-04-20 16:48] LABS: CLARITY URINE CLEAR (CLEAR); GLUCOSE URINE NEGATIVE (NEGATIVE); KETONES URINE 1+ (NEGATIVE); LEUKOCYTE ESTERASE URINE NEGATIVE (NEGATIVE); NITRITE URINE NEGATIVE (NEGATIVE); OCCULT BLOOD URINE NEGATIVE (NEGATIVE); PH URINE 5.5 (4.5-8.0); PROTEIN URINE 3+ (NEGATIVE); SPECIFIC GRAVITY URINE 1.014 (1.005-1.030); UROBILINOGEN URINE 1.0 E.U./dL (0.2-1.0)
[2025-04-20 17:01] LABS: COLOR URINE STRAW (YELLOW); WBC URINE 0-2 /hpf (0-2)
[2025-04-20 17:02] LABS: BACTERIA URINE TRACE; MUCUS URINE TRACE /lpf (NONE/TRACE); RBC URINE NONE SEEN /hpf (0-2); SQUAMOUS EPITHELIAL CELL URINE FEW /lpf (RARE/1+)
[2025-04-20 17:09] LABS: *AMPHETAMINES SCREEN URINE NEGATIVE (NEGATIVE); *BARBITURATES SCREEN URINE NEGATIVE (NEGATIVE); *BENZODIAZEPINES SCREEN URINE NEGATIVE (NEGATIVE); *COCAINE SCREEN URINE NEGATIVE (NEGATIVE); CANNABINOID URINE SCREEN NEGATIVE (NEGATIVE); ECSTASY MDMA SCREEN URINE NEGATIVE (NEGATIVE); METHADONE URINE SCREEN NEGATIVE (NEGATIVE); OPIATES URINE SCREEN NEGATIVE (NEGATIVE); PHENCYCLIDINE URINE SCREEN NEGATIVE (NEGATIVE)
[2025-04-20 18:22] VITALS: BP 156/87; PULSE 100; RESP 13; TEMP 36.9; O2SAT 100
== END 2025-04-20 18:35 | disposition home or self-care (01) ==
LOC: ER 14:01
DX: G40.909 Epilepsy, unspecified, not intractable, without status epilepticus (principal); I12.9 Hypertensive chronic kidney disease with stage 1 through stage 4 chronic kidney disease, or unspecified chronic kidney disease; E11.22 Type 2 diabetes mellitus with diabetic chronic kidney disease; N18.9 Chronic kidney disease, unspecified; Z79.899 Other long term (current) drug therapy
CPT/HCPCS: 99284; 96365; 80305; 80048; 81003; 85025; 36415; 93005; G0480; J1953; 80320

== ENCOUNTER 2025-08-17 13:25 | Emergency (ER) | payer MEDICAID ==
[~2025-08-17] VITALS: Ht 172.7 cm; Wt 77.0 kg
[2025-08-17 13:28] VITALS: TEMP 98.5; O2SAT 98
[2025-08-17] MEDS: LEVETIRACETAM 1000MG PREMIX 100 ML IV ONE (14:12)
[2025-08-17 15:06] LABS: BASOPHILS % 0.4 % (0.0-2.0); EOSINOPHILS % 0.7 % (0.0-5.0); HEMATOCRIT. 34.2 % (42.0-52.0); HEMOGLOBIN. 11.2 g/dL (14.0-18.0); LYMPHOCYTES % 23.6 % (20.0-50.0); MEAN PLATELET VOLUME 7.3 fl (7.4-10.4); MONOCYTES % 5.5 % (2.0-8.0); NEUTROPHILS % 69.8 % (40.0-76.0); PLATELET 340 x1000/uL (130-400); RED BLOOD CELL COUNT 3.77 mill/uL (4.7-6.1); RED CELL DISTRIBUTION WIDTH 13.6 % (11.6-14.6)
[2025-08-17 15:20] LABS: CREATININE 1.2 mg/dL (0.6-1.3); ETHANOL BLOOD < 10 mg/dL (<10); UREA NITROGEN BLOOD 16 mg/dL (9-23)
[2025-08-17 16:12] VITALS: BP 165/77; PULSE 100; RESP 15; O2SAT 100
== END 2025-08-17 16:19 | disposition home or self-care (01) ==
LOC: ER 13:25
DX: R56.9 Unspecified convulsions (principal); E11.9 Type 2 diabetes mellitus without complications; Z79.899 Other long term (current) drug therapy
CPT/HCPCS: 80048; 80320; 85025; 36415; 96365; 96366; 99284; J1953; A4606; G0480